=== PATIENT | male | born 1985 | race Caucasian/White ===

== ENCOUNTER 2023-01-09 21:20 | Emergency (ER) | payer BC ==
[~2023-01-09] VITALS: Ht 182.9 cm; Wt 122.5 kg
[2023-01-09 21:54] VITALS: BP 124/86
[2023-01-10] MEDS ORDERED: BENZ200C4 PO (00:36)
[2023-01-10] MEDS ORDERED: IBUP-2213 PO (00:38)
[2023-01-10 00:51] VITALS: BP 124/86
--- NOTE | 2023-01-10 01:05 | NUR ---
Patient discharged with v/s stable. Written and verbal after care instructions given and explained. New rx ibuprofen, benzonatate. Patient verbalized understanding. Ambulatory with steady gait. All questions addressed prior to discharge. Advised to follow up with PMD.
--- NOTE | 2023-01-10 01:05 | NUR ---
Patient seen and evaluated by MARTIR
== END 2023-01-10 01:05 | disposition home or self-care (01) ==
LOC: MED 21:20
DX: J06.9 Acute upper respiratory infection, unspecified (principal); Z20.822 Contact with and (suspected) exposure to COVID-19; J02.9 Acute pharyngitis, unspecified; Z79.899 Other long term (current) drug therapy
CPT/HCPCS: 87081; 99283

== ENCOUNTER 2024-05-27 01:30 | Emergency (ER) | payer BC ==
[~2024-05-27] VITALS: Ht 180.3 cm; Wt 122.5 kg
[~2024-05-27 01:30] MED LIST: BENZ200C4 PO; IBUP-2213 PO
[2024-05-27 01:37] VITALS: BP 129/92; PULSE 92; RESP 18; TEMP 97.8; O2SAT 100
[2024-05-27 02:03] LABS: BASOPHILS # (AUTO) 0.1 K/uL (0.00-0.22); BASOPHILS % (AUTO) 0.5 % (0.0-2.0); EOSINOPHILS # (AUTO) 0.1 K/uL (0-0.4); EOSINOPHILS % (AUTO) 0.8 % (0.0-4.0); HEMATOCRIT 44.7 % (36-52); HEMOGLOBIN 15.1 g/dL (12.0-18.0); LYMPHOCYTES # (AUTO) 1.9 K/uL (2.0-11.5); LYMPHOCYTES % (AUTO) 17.2 % (20.5-51.1); MEAN CORPUSCULAR HEMOGLOBIN 30 pg (27-31); MEAN CORPUSCULAR HGB CONC 34 g/dL (33-37); MEAN CORPUSCULAR VOLUME 88.8 fL (80-94); MONOCYTES # (AUTO) 0.7 K/uL (0.8-1.0); MONOCYTES % (AUTO) 6.6 % (1.7-9.3); NEUTROPHILS # (AUTO) 8.2 K/uL (1.8-7.7); NEUTROPHILS % (AUTO) 74.9 % (42.2-75.2); PLATELET COUNT (AUTO) 244 K/uL (140-450); RED BLOOD CELL COUNT(AUTO) 5.03 MIL/uL (4.20-6.10); RED CELL DISTRIBUTION WIDTH 13.7 % (11.6-13.7)
[2024-05-27] MEDS: IBUPROFEN 600 MG TAB PO ONE (02:10)
[2024-05-27 02:30] LABS: ANION GAP 8.5 (8-16); CALCIUM 8.9 mg/dL (8.5-10.1); CARBON DIOXIDE 31.6 mmol/L (21-32); CREATININE 0.9 mg/dL (0.6-1.3); POTASSIUM 4.1 mmol/L (3.5-5.1)
[2024-05-27 05:24] VITALS: BP 104/54; PULSE 88; RESP 17; TEMP 97.8; O2SAT 98
== END 2024-05-27 05:24 | disposition home or self-care (01) ==
LOC: MED 01:30
DX: R07.89 Other chest pain (principal); Z79.1 Long term (current) use of non-steroidal anti-inflammatories (NSAID); Z79.899 Other long term (current) drug therapy
CPT/HCPCS: 36415; 71045; 80048; 84484; 85025; 93005; 99285